=== PATIENT | male | born 1955 | race Caucasian/White ===

== ENCOUNTER 2018-11-04 04:05 | Emergency (ER) | payer OTHER ==
[~2018-11-04] VITALS: Ht 162.6 cm; Wt 54.5 kg
[~2018-11-04 04:05] MED LIST: CYCL10TA7 PO; HYDR25TA6 PO; IBUP800T48 PO; OMEP40CA6 PO; PRED20TA PO
[2018-11-04 04:13] VITALS: Ht 162.6 cm; Wt 54.5 kg
--- NOTE | 2018-11-04 04:43 | ERD ---
ER Documentation Chief Complaint Chief Complaint chronic low back pain, also c/o neck arm pain x 4 days ROS All systems reviewed and are negative except as per history of present illness. Medications Home Meds Active Scripts Omeprazole* (Omeprazole*) 40 Mg Capsule.dr, 40 MG PO DAILY for 30 Days, #30 CAP Prov:COLE NICOLAS 11/04/18 Cyclobenzaprine Hcl* (Cyclobenzaprine Hcl*) 10 Mg Tablet, 10 MG PO TID PRN for MUSCLE SPASMS, #15 TAB Prov:COLE NICOLAS 11/04/18 Ibuprofen* (Motrin*) 800 Mg Tab, 800 MG PO Q8 PRN for PAIN AND OR ELEVATED TEMP, #30 TAB Prov:COLE NICOLAS 11/04/18 Allergies Allergies: Coded Allergies: No Known Drug Allergies (Verified Allergy, Unknown, 11/04/18) PMhx/Soc Medical and Surgical Hx: pt denies Medical Hx, pt denies Surgical Hx Hx Alcohol Use: Yes Hx Substance Use: Yes Hx Tobacco Use: Yes Smoking Status: Former smoker Physical Exam Vitals Vital Signs Date Temp Pulse Resp B/P (MAP) Pulse Ox O2 O2 Flow FiO2 Time Delivery Rate 11/04/18 68 20 204/109 05:29 (140) 11/04/18 91 20 187/99 05:12 (128) 11/04/18 97.6 86 18 181/94 98 04:13 (123) Physical Exam Const: No acute distress Head: Atraumatic Eyes: Normal Conjunctiva ENT: Normal External Ears, Nose and Mouth. Neck: Full range of motion. No meningismus. Resp: Clear to auscultation bilaterally Cardio: Regular rate and rhythm, no murmurs Abd: Soft, non tender, non distended. Normal bowel sounds Skin: No petechiae or rashes Back: No midline or flank tenderness Ext: No cyanosis, or edema Neur: Awake and alert Psych: Normal Mood and Affect Results 24 hrs Current Medications Medications Dose Sig/Lonny Start Time Status Last (Trade) Ordered Route PRN Stop Time Admin Dose Reason Admin 1 tab ONCE ONCE 11/04/18 DC 11/04/18 Acetaminophen PO 05:00 11/04/18 05:11 / 05:01 Hydrocodone Bitart ([place] (10/325)) Nicardipine 30 mg ONCE ONCE 11/04/18 DC 11/04/18 HCl PO 05:00 11/04/18 05:11 (Cardene) 05:01 Departure Diagnosis: Primary Impression: Back pain Additional Impressions: Muscle spasms of neck Muscle spasm Chronic pain Condition: Stable Additional Instructions: Follow-up with PCP in the next 24-48 hours. PCP to refer patient to pain specialist in the next 24 to 48 hours. Come back here in the emergency departm ent for any new symptoms or any worsening symptoms. COLE NICOLAS Nov 04, 2018 04:43
[2018-11-04] MEDS ORDERED: NICARDipine HCL 30 MG CAPSULE PO ONE (05:00)
[2018-11-04] MEDS ORDERED: HYDROCODONE/APAP (10/325) TAB PO ONE (05:00)
--- NOTE | 2018-11-04 06:15 | ERD ---
ER Documentation Chief Complaint Chief Complaint chronic low back pain, also c/o neck arm pain x 4 days HPI This is a 63-year-old homeless male with no reported past medical history who is presenting with exacerbated chronic pains. The patient endorses chronic neck and back pain, ongoing for several months. 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 The patient endorses generalized aching and soreness. The patient reports that over the last few days, he has felt worsening aching and tightness to his lower back, exacerbated by movement. The patient also endorses sore aching posterior neck pain as well as sore aching left shoulder pain, also exacerbated with movement. The patient does not endorse any trauma. He does not endorse any paresthesias. He denies any focal deficits. He has not had any weakness or numbness or tingling to the face or extremities. He does not endorse a facial droop. He has not been dysarthric or aphasic. The patient denies any chest or abdominal pain. He denies any shortness of breath or chest tightness or pleuritic pain. He has not been diaphoretic. He denies any lightheadedness or dizziness. He denies any nausea or vomiting. The patient was found to be hypertensive in triage. The patient does endorse taking ibuprofen at home for this with some improvement of his pain. The patient denies feeling sick recently. The patient denies fever or chills. The patient has had no headache or vision changes. The patient denies changes to bowel movements or urination. ROS All systems reviewed and are negative except as per history of present illness. Medications Home Meds Active Scripts Prednisone* (Prednisone*) 20 Mg Tab, 40 MG PO DAILY for 5 Days, TAB Prov:ANDREAS RAMOS MD 11/04/18 Hydrochlorothiazide* (Hydrochlorothiazide*) 25 Mg Tab, 25 MG PO DAILY, #30 TAB Prov:ANDREAS RAMOS MD 11/04/18 Omeprazole* (Omeprazole*) 40 Mg Capsule.dr, 40 MG PO DAILY for 30 Days, #30 CAP Prov:COLE NICOLAS 11/04/18 Cyclobenzaprine Hcl* (Cyclobenzaprine Hcl*) 10 Mg Tablet, 10 MG PO TID PRN for MUSCLE SPASMS, #15 TAB Prov:COLE NICOLAS 11/04/18 Ibuprofen* (Motrin*) 800 Mg Tab, 800 MG PO Q8 PRN for PAIN AND OR ELEVATED TEMP, #30 TAB Prov:COLE NICOLAS 11/04/18 Allergies Allergies: Coded Allergies: No Known Drug Allergies (Verified Allergy, Unknown, 11/04/18) PMhx/Soc Medical and Surgical Hx: pt denies Medical Hx, pt denies Surgical Hx History of Surgery: No Hx Neurological Disorder: No Hx Respiratory Disorders: No Hx Cardiac Disorders: No Hx Psychiatric Problems: No Hx Miscellaneous Medical Probl: No Hx Alcohol Use: Yes Hx Substance Use: Yes Hx Tobacco Use: Yes Smoking Status: Former smoker FmHx Family History: No diabetes Physical Exam Vitals Vital Signs Date Temp Pulse Resp B/P (MAP) Pulse Ox O2 O2 Flow FiO2 Time Delivery Rate 11/04/18 72 18 155/83 100 Room Air 07:40 (107) 11/04/18 68 20 204/109 05:29 (140) 11/04/18 91 20 187/99 05:12 (128) 11/04/18 97.6 86 18 181/94 98 04:13 (123) Physical Exam Const: No apparent distress, well-developed, well-nourished Head: Normocephalic, Atraumatic Eyes: Normal Conjunctiva. Extraocular movements intact. Pupils equal, round and reactive to light ENT: Normal External Ears, Nose and Mouth. Neck: Mild cervical spinal tenderness with full range of motion without significant exacerbation of pain. No meningismus. Resp: Clear to auscultation bilaterally, No wheezes, rales or rhonchi Cardio: Regular rate and rhythm. No murmurs, rubs or gallops Abd: Soft, non tender, non distended. Normal bowel sounds Skin: No petechiae or rashes Back: Mild lumbar midline tenderness without step-offs or deformities or redness or swelling or induration. No CVA tenderness Ext: No cyanosis, or edema Neur: Awake and alert, oriented 4. Cranial nerves intact. No facial droop. Normal strength, sensation and coordination. Psych: Normal Mood and Affect Results 24 hrs Current Medications Medications Dose Sig/Lonny Start Time Status Last (Trade) Ordered Route PRN Stop Time Admin Dose Reason Admin 1 tab ONCE ONCE 11/04/18 DC 11/04/18 Acetaminophen PO 05:00 11/04/18 05:11 / 05:01 Hydrocodone Bitart ([place] (10)) Nicardipine 30 mg ONCE ONCE 11/04/18 DC 11/04/18 HCl PO 05:00 11/04/18 05:11 (Cardene) 05:01 Procedures/[facility] MDM The patient's presentation warrants further investigation. Previous medical records, if available, were reviewed. EKG EKG read by me: Rate/Rhythm: Regular rate and rhythm at a rate of 66 bpm Intervals: Normal [place]: Normal Impression: No evidence of acute ischemia or arrhythmia TREATMENT/DISPOSITION The patient presents for chronic exacerbated neck and back pain. I do suspect a musculoskeletal etiology of symptoms given his overall presentation. Cervical radiculopathy is also certainly a possibility, but this may be further evaluated in an outpatient setting. There is no history of trauma or injury. There is no evidence of emergent posttraumatic injury. Patient has no step-offs or deformities. I have low suspicion for acute fracture or listhesis. I do not suspect retroperitoneal bleeding. The patient is ambulatory and mobile without difficulty. The patient does not have any saddle anesthesia or any focal deficits. The patient has not been incontinent of urine or stool. The patient has not had any retention of urine or stool. I have low suspicion for spinal cord injury. There is no evidence of sciatica. The patient denies any abdominal pain. The patient does not have any palpable pulsatile masses in the abdomen. I have low suspicion for AAA or aortic aneurysm rupture or dissection. The patient does not have any flank tenderness. The patient does not have any urinary complaints or gross hematuria. I have low suspicion for nephrolithiasis as the etiology of symptoms. The patient does not have any left upper quadrant tenderness radiating to the back. I have low suspicion for pancreatitis. The patient does not have a history of IV drug use. The patient is afebrile. The patient does not have symptoms consistent with an epidural abscess or other infectious etiologies. There are no overlying skin changes. There is no evidence of cellulitis or abscess or another soft tissue infection. The patient's blood pressure was elevated at greater than 120/80 while in the emergency department. The patient was otherwise stable with no evidence of hypertensive urgency or emergency. The patient does not require admission for b lood pressure control. However, I do suspect saw long-standing uncontrolled hypertension. I do feel that initiation of an antihypertensive agent at this time is warranted. I have discussed with the patient the risks of hypertension. I have instructed the patient to return to the ER for any new or worsening symptoms including chest pain, shortness of breath, headache, blurred vision, confusion, nausea, vomiting or LOC. I have advised the patient to follow up with the primary care physician for outpatient monitoring and treatment for hypertension in 1-3 days. The patient was treated with Toradol for pain control. DISCHARGE Upon reevaluation of the patient, symptoms have improved. No emergent diagnoses were identified. At this time, I feel that the patient stable for discharge. The patient was instructed to follow-up with a primary care physician in 1-3 days. The patient will be given strict precautions with which to return to the emergency department. Prescriptions: Ibuprofen, Flexeril, prednisone, HCTZ DISCLAIMER Inadvertent spelling and grammatical errors are likely due to EHR/dictation software use and do not reflect on the overall quality of patient care. Note that the electronic time recorded on this note does not necessarily reflect the actual time of the patient encounter. Departure Diagnosis: Primary Impression: Chronic neck and back pain Additional Impressions: Chronic low back pain Back pain laterality: bilateral Sciatica presence: with sciatica Sciatica laterality: bilateral sciatica Qualified Codes: M54.42 - Lumbago with sciatica, left side; M54.41 - Lumbago with sciatica, right side; G89.29 - Other chronic pain Chronic shoulder pain Laterality: left Qualified Codes: M25.512 - Pain in left shoulder; G89.29 - Other chronic pain Hypertension Hypertension type: unspecified Qualified Codes: I10 - Essential (primary) hypertension Condition: Stable Patient Instructions: Back Pain (Acute Or Chronic), High Blood Pressure (Hypertension) Referrals: NO PRIMARY,CARE PHYSICIAN (PCP) COMMUNITY CLINICS YOU HAVE RECEIVED A MEDICAL SCREENING EXAM AND THE RESULTS INDICATE THAT YOU DO NOT HAVE A CONDITION THAT REQUIRES URGENT TREATMENT IN THE EMERGENCY DEPARTMENT. FURTHER EVALUATION AND TREATMENT OF YOUR CONDITION CAN WAIT UNTIL YOU ARE SEEN IN YOUR DOCTORS OFFICE WITHIN THE NEXT 1-2 DAYS. IT IS YOUR RESPONSIBILITY TO MAKE AN APPOINTMENT FOR FOLOW-UP CARE. IF YOU HAVE A PRIMARY DOCTOR --you should call your primary doctor and schedule an appointment IF YOU DO NOT HAVE A PRIMARY DOCTOR YOU CAN CALL OUR PHYSICIAN REFERRAL HOTLINE AT IF YOU CAN NOT AFFORD TO SEE A PHYSICIAN YOU CAN CHOSE FROM THE FOLLOWING [facility] CLINICS [facility] [address] [facility] [place] [address] [facility] [place] [facility] [address] [facility] [address] [facility] [address] [facility]. [facility] [address] [facility]. [facility] YOU HAVE RECEIVED A MEDICAL SCREENING EXAM AND THE RESULTS INDICATE THAT YOU DO NOT HAVE A CONDITION THAT REQUIRES URGENT TREATMENT IN THE EMERGENCY DEPARTMENT. FURTHER EVALUATION AND TREATMENT OF YOUR CONDITION CAN WAIT UNTIL YOU ARE SEEN IN YOUR DOCTORS OFFICE WITHIN THE NEXT 1-2 DAYS. IT IS YOUR RESPONSIBILITY TO MAKE AN APPOINTMENT FOR FOLOW-UP CARE. IF YOU HAVE A PRIMARY DOCTOR --you should call your primary doctor and schedule and appointment IF YOU DO NOT HAVE A PRIMARY DOCTOR YOU CAN CALL OUR PHYSICIAN REFERRAL HOTLINE AT . IF YOU CAN NOT AFFORD TO SEE A PHYSICIAN YOU CAN CHOSE FROM THE FOLLOWING [facility]: [facility] [address] [place] [address] [facility] [address] [place] [address] [facility] [address] [place] [address] Additional Instructions: Thank you for for coming to [facility] for your care today. Please ask your nurse or provider if you have questions about your care today and do not leave until all your questions have been answered. Please use any medications given as directed and follow-up with your doctor (or the doctor you were referred to) in the next 1-3 days. If you do not have a primary care doctor you may follow up at the community hospital or critical access hospital clinic (listed below). You may also use motrin and tylenol as needed for fever and/or pain unless instructed otherwise by your provider or nurse. Indications for more urgent follow-up have been discussed, but you may return to the Emergency Department at ANY time for any worrisome or worsening symptoms. If you have abdominal pain, please know that no test or exam you received is perfect and you should follow up within 8 hours for continued pain. If you had any imaging studies today, such as an X-Ray or CT Scan, these studies will be reviewed later by a radiologist. You will be called if there are important findings that were not identified today, so make sure the contact information you provided at registration is correct. If you received any narcotic pain control medicine today, such as Vicodin, Morphine or Dilaudid, your coordination and judgment may be affected for a number of hours. Please do not drive or operate heavy machinery, and you may want someone to assist you at home. If you were given a prescription for narcotic medication, be aware that it is very addictive- use sparingly and only if necessary. PLEASE SEEK FURTHER EVALUATION AND MANAGEMENT AT YOUR DOCTORS OFFICE WITHIN THE NEXT 1-3 DAYS. IT IS YOUR RESPONSIBILITY TO MAKE AN APPOINTMENT FOR FOLOW-UP CARE. IF YOU HAVE A PRIMARY DOCTOR, PLEASE CALL THEIR OFFICE TO SCHEDULE AN APPOINTMENT FOR FOLLOW UP. IF YOU DO NOT HAVE A PRIMARY DOCTOR YOU CAN CALL OUR PHYSICIAN REFERRAL HOTLINE AT IF YOU CAN NOT AFFORD TO SEE A PHYSICIAN YOU CAN CHOSE FROM THE FOLLOWING [facility] CLINICS: [facility] [address] [facility]. [facility] [address] [facility] [facility] [address] [facility] [address] [facility] [address] [facility]. [facility]. [address] ANDREAS NEWTON MD Nov 04, 2018 06:15
[2018-11-04 07:40] VITALS: BP 155/83; PULSE 72; RESP 18
== END 2018-11-04 07:52 | disposition home or self-care (01) ==
LOC: FTE 04:05 → E/R 07:52
DX: M54.2 Cervicalgia (principal); M54.42 Lumbago with sciatica, left side; M54.41 Lumbago with sciatica, right side; M25.512 Pain in left shoulder; I10 Essential (primary) hypertension; Z87.891 Personal history of nicotine dependence; Z59.0 Homelessness
CPT/HCPCS: 93005; Z7502; Z7610